=== PATIENT | female | born 1940 | race Caucasian/White ===

== ENCOUNTER 2023-03-18 13:35 | Outpatient (CLI) | payer MEDICARE, BC, SELFPAY ==
--- NOTE | 2023-03-18 14:00 | CRLHL7_ITS ---
For Patients: As a result of the Century Cures Act, medical imaging exams and procedure reports are released immediately into your electronic medical record. You may view this report before your referring provider. If you have questions, please contact your health care provider. INDICATION: Leg pain, swelling. Fall 2 weeks ago. COMPARISON: None. TECHNIQUE: A compression venous ultrasound exam was performed of the left lower extremity using centeno-scale imaging, color Doppler and spectral Doppler analysis. FINDINGS: Sonographic imaging of the left lower extremity demonstrates normal compressibility and color Doppler venous blood flow within the common femoral, femoral, deep femoral, and proximal greater saphenous veins. At a lower level the popliteal, peroneal, and posterior tibial veins also show normal compressibility and color Doppler venous blood flow. Subcutaneous edema. Limited imaging of the contralateral groin demonstrates a normal spectral waveform and color Doppler venous blood flow within the right common femoral vein. IMPRESSION: Negative for acute DVT in the left lower extremity. Dictated by Liana Esqueda MD @ 03/18/2023 9:12:19 PM (Electronically Signed)
== END 2023-03-18 13:36 | disposition home or self-care (01) ==
PROVIDERS: PCP Internal Medicine; Visit Provider Internal Medicine
DX: M79.89 Other specified soft tissue disorders (principal)
CPT/HCPCS: 93971

== ENCOUNTER 2023-08-26 09:52 | Outpatient (CLI) | payer MEDICARE, BC, SELFPAY ==
--- OUTSIDE RECORDS SUMMARY | 2023-09-15 10:24 | XMS_ITS | Clinical Summary ---
Author Name Unknown Organization [facility] Address [place], [place] [address] Care Team Providers Care Pegger Dobby Looms Name Role Phone Hugh Urbina MD Unavailable [phone] Pcp, No Primary Care Provider Unavailabl e Allergies No known active allergies Medications Medication Sig Dispensed Refills Start Date End Date Status acetaminophen SR (TYLENOL ARTHRITIS PAIN) 650 mg Extended-Release tablet Take 1 tablet by mouth every 8 hours if needed. Max acetaminophen dose: 4000mg in 24 hrs. 0 6 Active apixaban (ELIQUIS) 5 mg tabletIndications :Paroxysmal atrial fibrillation (HC) Take 1 Tablet (5 mg) by mouth 2 times daily. 180 tablet. 3 2 Active losartan (COZAAR) 100 mg tabletIndications :Hypertension, unspecified type Take 1 Tablet (100 mg) by mouth once daily. 90 Tablet 3 2 Active benzonatate (Tessalon Perles) 100 mg capsuleIndication s:Pneumonia of left lower lobe due to infectious organism Take 1 Capsule (100 mg) by mouth 3 times daily if needed for Cough. 30 Capsule 2 Active furosemide (LASIX) 40 mg tabletIndications :Congestive heart failure, unspecified HF chronicity, unspecified heart failure type (HC) One oral every am 30 Tablet 3 Active amLODIPine (NORVASC) 5 mg tabletIndications :Hypertension, unspecified type Take 1 Tablet (5 mg) by mouth once daily. 90 Tablet 4 3 Active atenoloL (TENORMIN) 25 mg tabletIndications :Hypertension, unspecified type TAKE 1 TABLET BY MOUTH TWO TIMES DAILY. 60 Tablet 3 Active amLODIPine (NORVASC) 5 mg tabletIndications :Hypertension, unspecified type,Permanent atrial fibrillation (HC),Chronic congestive heart failure, unspecified heart failure type (HC) Take 1 Tablet (5 mg) by mouth once daily. Refill at patient's request only 90 Tablet 3 4 Active amLODIPine (NORVASC) 2.5 mg tabletIndications :Hypertension, unspecified type TAKE 1 TABLET BY MOUTH ONCE DAILY. 30 Tablet 4 08/24/19 24 Discontinued Active Problems Problem Noted Date Diagnosed Date CHF (congestive heart failure) 11/22/2020 Paroxysmal A-fib 11/22/2020 Routine adult health maintenance 02/11/2013 Overview: Colonoscopy 01/2013 few erosions, no follow up needed Obesity, unspecified 01/24/2008 Unspecified essential hypertension 01/25/2007 Encounters Date Type Department Care Team Description 08/24/2023 Orders Only [address] [address] [place] [id number] Jose Luis Sofia MD <No scans attached> 08/22/2023 Refill [facility] [address] [place] [address] Jose Luis Sofia MD Refill Request (Amlodipine) 07/08/2023 Refill [facility] [address] [place] [address] Jose Luis Sofia MD Refill Request (Amlodipine) from Last 3 Months Immunizations Name Administration Dates Next Due COVID-19 vaccine ([employer] NTech 30mcg/0.3mL) 12YO+ BIVALENT PF MDV 03/17/2022 COVID-19 vaccine ([employer]-Bio NTech 30mcg/0.3mL) PF MDV 10/26/2020,10/04/2020 Influenza, High-dose Inactivated 02/18/2016,10/0 01/2015,02/08/2014 Influenza, IIV3 (Age 6-35 mos) 02/18/2013,2011,04/03/2008 Influenza, IIV3 (Age >=3 years) 02/13/2012,04/03 Influenza, Inactivated AIIV4 (Age 65+ Years) Preserv Free 03/17/2022 Influenza, Inactivated IIV3 (Age 65+ Years) Preserv Free 02/23/2019,02/19/2018,02/18/2017 Pneumococcal Poly,23-Valent (Pneumovax) 01/24/20 08 Pneumococcal conj 13-Valent (Prevnar 13) 016 Td (Age >=7 Years) 11/21/1996 Td, Preservative Free (age >= 7 Years) 7 Tdap 02/24/2015 Zoster (Zostavax-ZVL, live) 06/11/2012, 3 Family History Medical History Relation Name Comments Other Brother 2 d60's of heart Heart Disease Father Other Father d45 of [place] Cancer Mother Multiple Melano ma Hypertension Mother Other Mother d84 multiple my eloma Cancer-breast Other cousins Relation Name Status Comments Brother 1 Brother 2 Father Mother Other Social History Tobacco Use Types Packs/Day Years Used Date Smoking Tobacco: Never Smokeless Tobacco: Never Tobacco Cessation:Counseling Given: Yes Alcohol Use Standard Drinks/Week Comments Not Currently 7 (1 standard drink = 0.6 oz pur e alcohol) gin -water x 2a day PHQ-2 Answer Date Recorded PHQ-2 TOTAL SCORE 0 11/27/2021 Social Connections Answer Date Recorded Frequency of Communication with Friends and Fami ly Not on file 05/18/2021 Financial Resource Strain Answer Date R ecorded Difficulty of Paying Living Expenses Not on file 05/18/2021 Difficulty of Paying Living Expenses Not on file 05/18/2021 Sex and Gender Information Value Date Recorded Sex Assigned at Female 11/21/2020 11:50 AM CDT Gender Identity Female 11/21/2020 11:50 AM CDT Sexual Orientation Straight 11/21/2020 11 :50 AM CDT Obstetrics History Para Term AB IAB SAB Ectopic Multiple Livin g Live Births 5 5 3 2 Date Outcome GA Total Labor Labor/2nd/3rd Weight Sex Delivery Anes PTL Kristie A1 A5 Name Cl in Term Term Term Last Filed Vital Signs Vital Sign Reading Time Taken Comments Blood Pressure 160/80 04/02/2022 10:57 AM FASHION MARKETER Pulse 89 04/02/2022 10:57 AM FASHION MARKETER Temperature 36.9 ??C (98.5 ??F) 03/28/2022 8:50 AM CS T Respiratory Rate 20 01/02/2022 2:20 PM CDT Oxygen Saturation 98% 04/02/2022 10:57 AM FASHION MARKETER Inhaled Oxygen Concentration - - Weight 81.6 kg (180 lb) 04/02/2022 10:57 AM FASHION MARKETER Height 154.5 cm (5' 0.83) 11/27/2021 2:39 PM CD T Body Mass Index 34.2 11/27/2021 2:39 PM CDT Plan of Treatment Health Maintenance Due Date Last Done Comments Zoster (shingles) series for age 50+ (2 of 3) 08/06/2012 06/11/2012, 05/18/2012 BMI (ht and wt on same day) for age 18+ 11/27/2022 11/27/2021, 11/22/2020, 10/19/2019, Additional history exists Depression screening for age 12+ 11/27/2022 11/27/2021, 11/22/2020, 02/23/2019, Additional history exists Medicare Wellness for age 65+ 11/28/2022, 11/22/2020, 02/23/2019, Additional history exists COVID-19 vaccine series ( season) 2023 03/17/2022, 05/08/2021, 10/26/2020, Additional history exists Influenza for age 65+ 01/17/2024 03/17/2022 , 02/23/2019, 02/19/2018, Additional history exists Tetanus booster 02/24/2025 02/24/2015, 01/16, 11/21/1996 DEXA/DXA scan for age 65+ Completed 02/08/2008 Tdap Completed 02/24/2015, 02/24/2015 Pneumococcal series for age 65+ Completed 6, 01/24/2008 Procedures Procedure Name Priority Date/Time Associated Diagnosis Comments XR DXA BONE DENSITY 2 SITES AXIAL Routine 02/08/2008 9:11 AM CDT Post-Menopausal from Last 3 Months or Most Recently Relevant to Health Maintenance Results * XR DEXA BONE DENSITY 2 SITES (02/08/2008 9:11 AM CDT) Anatomical Region Laterality Modality Spine, HIPS, HIPL, HIPR Other 02/08/2008 9:11 AM CDT Narrative 02/18/2008 2:05 PM CDT Please see scanned document for results of this study. Procedure Note Zabrina Sarmiento - 02/19/2008 Please see scanned document for results of this study. Tae Ann MD DEXA from Last 3 Months or Most Recently Relevant to Health Maintenance Care Teams Pegger Dobby Looms Relationship Specialty Start Date End Date Pcp, No . PCP - General 09/11/23 Hugh Urbina MD [address] [place] [id number] Cardiology Cardiovascular Disease 11/22/20
== END 2023-08-26 09:53 | disposition home or self-care (01) ==
LOC: NFLDREF 09-15 10:17
PROVIDERS: PCP Internal Medicine; Referring Provider Internal Medicine; Visit Provider Internal Medicine
DX: I10 Essential (primary) hypertension (principal); Z13.220 Encounter for screening for lipoid disorders
CPT/HCPCS: 80053; 80061

== ENCOUNTER 2023-12-28 08:30 | Outpatient (CLI) | payer MEDICARE, BC, SELFPAY ==
--- OUTSIDE RECORDS SUMMARY | 2023-12-28 08:34 | XMS_ITS | Clinical Summary ---
Author Organization [employer] [facility] Address [place], [place] [address] Care Team Providers Care Wire Weaver Name Role Phone Hugh Urbina MD Unavailable [phone] Pcp, No Primary Care Provider Unavailabl e Allergies No known active allergies Medications Medication Sig Dispensed Refills Start Date End Date Status acetaminophen SR (TYLENOL ARTHRITIS PAIN) 650 mg Extended-Release tablet Take 1 tablet by mouth every 8 hours if needed. Max acetaminophen dose: 4000mg in 24 hrs. 0 09/17/2015 Active apixaban (ELIQUIS) 5 mg tabletIndications: Paroxysmal atrial fibrillation (HC) Take 1 Tablet (5 mg) by mouth 2 times daily. 180 tablet. 3 06/03/2021 Active losartan (COZAAR) 100 mg tabletIndications: Hypertension, unspecified type Take 1 Tablet (100 mg) by mouth once daily. 90 Tablet 3 11/27/2021 Active benzonatate (Tessalon Perles) 100 mg capsuleIndications :Pneumonia of left lower lobe due to infectious organism Take 1 Capsule (100 mg) by mouth 3 times daily if needed for Cough. 30 Capsule 03/28/2022 Active furosemide (LASIX) 40 mg tabletIndications: Congestive heart failure, unspecified HF chronicity, unspecified heart failure type (HC) One oral every am 30 Tablet 01/29/2023 Active amLODIPine (NORVASC) 5 mg tabletIndications: Hypertension, unspecified type Take 1 Tablet (5 mg) by mouth once daily. 90 Tablet 4 02/06/2023 Active atenoloL (TENORMIN) 25 mg tabletIndications: Hypertension, unspecified type TAKE 1 TABLET BY MOUTH TWO TIMES DAILY. 60 Tablet 03/01/2023 Active amLODIPine (NORVASC) 5 mg tabletIndications: Hypertension, unspecified type,Permanent atrial fibrillation (HC),Chronic congestive heart failure, unspecified heart failure type (HC) Take 1 Tablet (5 mg) by mouth once daily. Refill at patient's request only 90 Tablet 3 08/24/2023 Active Active Problems Problem Noted Date Diagnosed Date CHF (congestive heart failure) 11/22/2020 Paroxysmal A-fib 11/22/2020 Routine adult health maintenance 02/11/2013 Overview: Colonoscopy 01/2013 few erosions, no follow up needed Obesity, unspecified 01/24/2008 Unspecified essential hypertension 01/25/2007 Encounters Date Type Department Care Team Description 10/01/2023 11:00 AM CDT Office Visit [facility]Note 3] at [facility] & [address] [address] Jose Luis Sofia MD from Last 3 Months Immunizations Name Administration Dates Next Due COVID-19 vaccine ([employer] NTech 30mcg/0.3mL) 12YO+ BIVALENT PF, MDV 03/17/2022 COVID-19 vaccine ([employer]-Bio NTech 30mcg/0.3mL) PF, MDV 10/26/2020,10/04/2020 Influenza, High-dose Inactivated 02/18/2016,1001/2015,02/08/2014 Influenza, IIV3 (Age 6-35 mos) 02/18/2013,2011,04/03/2008 Influenza, [...] Heart Disease Father Other Father d45 of [place] Cancer Mother Multiple Melano ma Hypertension Mother [...] Outcome GA Total Labor Labor/2nd/3rd Weight Sex Type Anes PTL Kristie A1 A5 Name Clin Term Term Term Last Filed Vital Signs Vital Sign Reading Time Taken Comments Blood Pressure 160/80 04/02/2022 10:57 AM WILDERNESS GUIDE Pulse 89 04/02/2022 10:57 AM WILDERNESS GUIDE Temperature 36.9 ??C (98.5 ??F) 03/28/2022 8:50 AM CS T Respiratory Rate 20 01/02/2022 2:20 PM CDT Oxygen Saturation 98% 04/02/2022 10:57 AM WILDERNESS GUIDE Inhaled Oxygen Concentration - - Weight 81.6 kg (180 lb) 04/02/2022 10:57 AM WILDERNESS GUIDE Height 154.5 cm (5' 0.83) 11/27/2021 2:39 PM CD T Body Mass Index 34.2 11/27/2021 2:39 PM CDT Plan of Treatment Upcoming Encounters Date Type Department Care Team (Late st Contact Info) Description 12/28/2023 9:00 AM CDT Ancillary Procedure [facility][Note 3] at [facility] & [facility] [address] [place] [address] Health Maintenance Due Date Last Done Comments [...] exists COVID-19 vaccine series ( season) 2023 03/11/2023, 03/17/2022, 05/08/2021, Additional history exists Influenza for age 65+ [...] of this study. Procedure Note Zabrina Sarmiento D - 02/19/2008 Please see scanned document for results of this study. Tae Ann MD DEXA from Last 3 Months or Most Recently Relevant to Health Maintenance Care Teams Wire Weaver Relationship Specialty Start Date End Date Pcp, No . PCP - General 09/11/23 Hugh Urbina MD [address] [place] [phone] Cardiology Cardiovascular Disease 11/22/20
== END 2023-12-28 08:31 | disposition home or self-care (01) ==
PROVIDERS: PCP Internal Medicine; Visit Provider Internal Medicine Cardiovascular Disease
DX: I48.91 Unspecified atrial fibrillation (principal); I07.1 Rheumatic tricuspid insufficiency; I51.7 Cardiomegaly; I34.0 Nonrheumatic mitral (valve) insufficiency
CPT/HCPCS: 93306

== ENCOUNTER 2024-03-30 14:17 | Outpatient (CLI) | payer MEDICARE, BC, SELFPAY ==
--- OUTSIDE RECORDS SUMMARY | 2024-04-02 19:44 | XMS_ITS | Clinical Summary ---
Author Organization [employer] [facility] Address [place], [place] [address] Care Team Providers Care Sales And Marketing Engineer Name Role Phone Hugh Urbina MD Unavailable [phone] Daniel Riggs MD Primary Care Provider Allergies No known active allergies Medications Medication [...] once daily. 90 Tablet 4 02/06/2023 Active amLODIPine (NORVASC) 5 mg tabletIndications: Hypertension, unspecified type,Permanent atrial fibrillation (HC),Chronic congestive heart failure, unspecified heart failure type (HC) Take 1 Tablet (5 mg) by mouth once daily. Refill at patient's request only 90 Tablet 3 08/24/2023 Active atenoloL (TENORMIN) 50 mg tabletIndications: Hypertension, unspecified type Take 1 Tablet (50 mg) by mouth two times daily. 180 Tablet 3 01/21/2024 Active Active Problems Problem Noted Date Diagnosed Date CHF (congestive heart failure) 11/22/2020 Paroxysmal A-fib 11/22/2020 Routine adult health maintenance 02/11/2013 Overview (02/11/2013): Colonoscopy 01/2013 few erosions, no follow up needed Obesity, unspecified 01/24/2008 Unspecified essential hypertension 01/25/2007 Encounters Date Type Department Care Team Description 01/21/[address] [place] [address] Jose Luis Sofia MD Results (echocardiogram) from Last 3 Months Immunizations Name Administration Dates Next Due COVID-19 vaccine ([employer] NTech 30mcg/0.3mL) 12YO+ BIVALENT PF MDV 03/17/2022 COVID-19 vaccine ([employer]-Bio NTech 30mcg/0.3mL) PF, MDV 10/26/2020,10/04/2020 Influenza, High-dose Inactivated 02/18/2016,100 01/2015,02/08/2014 Influenza, IIV3 (Age 6-35 mos) 02/18/2013,2011,04/03/2008 [...] Comments Blood Pressure 160/80 04/02/2022 10:57 AM IMPREGNATOR Pulse 89 04/02/2022 10:57 AM IMPREGNATOR Temperature 36.9 ??C (98.5 ??F) 03/28/2022 8:50 AM CS T Respiratory Rate 20 01/02/2022 2:20 PM CDT Oxygen Saturation 98% 04/02/2022 10:57 AM IMPREGNATOR Inhaled Oxygen Concentration - - Weight 81.6 kg (180 lb) 04/02/2022 10:57 AM IMPREGNATOR Height 154.5 cm (5' 0.83) 11/27/2021 2:39 PM CD T Body Mass Index 34.2 11/27/2021 2:39 PM CDT Plan of Treatment Health Maintenance Due Date Last Done Comments Zoster (shingles) series for age 50+ (2 of 3) 08/06/2012 06/11/2012, 05/18/2012 RSV vaccine for adults or (1 - 1-dose 75+ series) 2013 BMI (ht and wt on same day) for age 18+ 11/27/2022 11/27/2021, 11/22/2020, 10/19/2019, Additional history exists Depression screening for age 12+ 11/27/2022 11/27/2021, 11/22/2020, 02/23/2019, Additional history exists Medicare Wellness for age 65+ 11/28/2022, 11/22/2020, 02/23/2019, Additional history exists COVID-19 vaccine series ( season) 2024 03/11/2023, 03/17/2022, 05/08/2021, Additional history exists Influenza [...] document for results of this study. Tae MEEKS from Last 3 Months or Most Recently Relevant to Health Maintenance Care Teams Sales And Marketing Engineer Relationship Specialty Start Date End Date Daniel Riggs MD [address] [place] [address] PCP - General Internal Medicine 12/28/23 Hugh Urbina MD [address] [place] [id number] Cardiology Cardiovascular Disease 11/22/20
== END 2024-03-30 14:18 | disposition home or self-care (01) ==
LOC: NFLDREF 04-02 19:42
PROVIDERS: PCP Internal Medicine; Referring Provider Internal Medicine; Visit Provider Internal Medicine
DX: M79.89 Other specified soft tissue disorders (principal)
CPT/HCPCS: 80048

== ENCOUNTER 2024-07-07 14:26 | Outpatient (CLI) | payer MEDICARE, BC, SELFPAY | END 2024-07-07 14:27 | disposition home or self-care (01) | PROVIDERS: PCP Internal Medicine; Visit Provider Internal Medicine | DX: R60.9 Edema, unspecified (principal); I10 Essential (primary) hypertension; I48.91 Unspecified atrial fibrillation; R79.89 Other specified abnormal findings of blood chemistry | CPT/HCPCS: 80053; 84443; 85610; 85730 ==

== ENCOUNTER 2024-07-15 11:05 | Outpatient (CLI) | payer MEDICARE, BC, SELFPAY ==
--- NOTE | 2024-07-15 11:15 | CRLHL7_ITS ---
For Patients: As a result of the Century Cures Act, medical imaging exams and procedure reports are released immediately into your electronic medical record. You may view this report before your referring provider. If you have questions, please contact your health care provider. INDICATION: Edema COMPARISON: none TECHNIQUE: Real time centeno scale imaging and color Doppler analysis was performed of the right upper quadrant. FINDINGS: The patient`s liver is of normal size and has uniform echogenicity. There is a normal appearance of the hepatic IVC and proximal abdominal aorta. There is no evidence of ascites. The gallbladder is of normal size and there is no evidence of intraluminal stones or sludge. The gallbladder wall measures 1.5 mm in thickness. The common bile duct is of normal size and measures 10.6 mm in diameter at the level of the kalpana hepatis. The visualized pancreas appears normal. There is no evidence of a stone or hydronephrosis within the right kidney. The right kidney measures 10.2 cm in length. Right pleural effusion is present. Main portal vein measures 8 millimeters with peak systolic velocity of 22 cm/second. IMPRESSION: Right pleural effusion. Unremarkable liver. Dictated by Álvaro Fernandez MD @ 07/17/2024 4:34:54 PM (Electronically Signed)
== END 2024-07-15 11:06 | disposition home or self-care (01) ==
LOC: US 11:07
PROVIDERS: PCP Internal Medicine; Visit Provider Internal Medicine
DX: R60.9 Edema, unspecified (principal); J90 Pleural effusion, not elsewhere classified
CPT/HCPCS: 76705

== ENCOUNTER 2024-09-14 15:24 | Outpatient (CLI) | payer MEDICARE, BC, SELFPAY | END 2024-09-14 15:25 | disposition home or self-care (01) | PROVIDERS: PCP Internal Medicine; Visit Provider Internal Medicine | DX: I50.813 Acute on chronic right heart failure (principal); I48.21 Permanent atrial fibrillation; I07.1 Rheumatic tricuspid insufficiency; R23.3 Spontaneous ecchymoses; Z79.01 Long term (current) use of anticoagulants | CPT/HCPCS: 80053; 83880; 85610 ==

== ENCOUNTER 2025-03-16 14:17 | Outpatient (CLI) | payer MEDICARE, BC, SELFPAY | END 2025-03-16 14:18 | disposition home or self-care (01) | PROVIDERS: PCP Internal Medicine; Visit Provider Internal Medicine | DX: D64.9 Anemia, unspecified (principal) | CPT/HCPCS: 80053 ==